=== PATIENT | male | born 1985 | race Caucasian/White ===

== ENCOUNTER → 2017-06-11 | Outpatient (CLI) | payer OTHER ==
[2017-06-11 12:37] LABS: BASO % 0.5 %; BASO ABS # 0.03 K/uL (0-0.2); EOS % 2.9 %; EOS ABS # 0.19 K/uL (0-0.5); HEMATOCRIT 47.4 % (42-52); HEMOGLOBIN 16.9 g/dL (14.0-18.0); IG# 0.02 K/uL (0.00-0.02); LYMPH ABS # 1.44 K/uL (1.2-3.4); MEAN CELL VOLUME 97.9 fL (80-100); MEAN CORPUSCULAR HEMOGLOBIN 34.9 pg (25-34); MEAN CORPUSCULAR HGB CONC 35.7 g/dl (32-36); MONO % 10.2 %; MONO ABS # 0.67 K/uL (0.11-0.59); NEUT % 64.1 %; NEUT ABS # 4.19 K/uL (1.4-6.5); PLATELET COUNT 113 K/uL (130-400); RED CELL DISTRIBUTION WIDTH CV 12.3 % (11.5-14.5); RED CELL DISTRIBUTION WIDTH SD 43.8 fL (36.4-46.3); WHITE BLOOD COUNT 6.54 K/uL (4.8-10.8)
[2017-06-11 13:11] LABS: ALKALINE PHOSPHATASE 112 U/L (45-117); ALT/SGPT 45 U/L (12-78); AST/SGOT 30 U/L (15-37); BLOOD UREA NITROGEN 15 mg/dl (7-18); CALCIUM 9.8 mg/dl (8.5-10.1); CARBON DIOXIDE 30 mmol/L (21-32); CREATININE 0.89 mg/dl (0.60-1.40); GLUCOSE 91 mg/dl (70-99); SODIUM 136 mmol/L (136-145); TOTAL PROTEIN 7.5 gm/dl (6.4-8.2)
== END | disposition home or self-care (01) ==
LOC: C.LABBFT 08:53
PROVIDERS: ATTEND Nurse Practitioner
DX: I10 Essential (primary) hypertension (principal)

== ENCOUNTER 2017-09-22 08:08 | Emergency (ER) | payer OTHER ==
[2017-09-22 08:16] VITALS: TEMP 36.7; Ht 180.3 cm
--- NOTE | 2017-09-22 08:42 | DIAGNOSTIC IMAGING REPORT ---
R HAND MIN 3 VIEWS ROUTINE CLINICAL HISTORY: 31 years-old Male presenting with R hand pain. TECHNIQUE: Frontal, oblique, and lateral views of the right hand were obtained. COMPARISON: None. FINDINGS: Comminuted intra-articular fracture of the neck and head of the fifth metacarpal. There is mild apex dorsal angulation. Overlying soft tissue swelling. No subluxation of the fifth metacarpophalangeal joint. Old ulnar styloid fracture also noted. No additional acute osseous injury. IMPRESSION: Comminuted fracture of the fifth metacarpal neck, which is suspected to also involve the metacarpal head and be intra-articular. Electronically signed by: See Connolly M.D. 09/22/2017 8:41 AM Dictated Date/Time: 09/22/2017 8:39 AM
--- NOTE | 2017-09-22 08:44 | DIAGNOSTIC IMAGING REPORT ---
R TOE(S) MIN 2 VIEWS CLINICAL HISTORY: 31 years-old Male presenting with R great toe pain. TECHNIQUE: Frontal, oblique, and lateral views of the right first toe were obtained. COMPARISON: None. FINDINGS: Obliquely oriented intra-articular fracture of the proximal phalanx of the first right toe. This extends into both the first metatarsophalangeal joint and the interphalangeal joint. There is no apparent cortical step off at the intra-articular fracture planes. No malalignment or additional fracture is evident. No advanced degenerative change. Mild overlying soft tissue swelling. IMPRESSION: Comminuted nondisplaced fracture of the proximal length of the right first toe, which is intra-articular at both the first metatarsophalangeal joint and the interphalangeal joint. Electronically signed by: See Connolly M.D. 09/22/2017 8:43 AM Dictated Date/Time: 09/22/2017 8:41 AM
[2017-09-22] MEDS ORDERED: LISI40TA PO (08:53)
[2017-09-22] MEDS ORDERED: TRAM-10 PO (09:24)
[2017-09-22] MEDS ORDERED: TRAMADOL HCL 50 MG TAB PO STA (09:34)
[2017-09-22 09:50] VITALS: BP 134/76; PULSE 87; O2SAT 98
--- NOTE | 2017-09-22 10:33 | EMERGENCY ROOM VISIT NOTE ---
History First contact with patient: 08:20 Chief Complaint: HAND PAIN/INJURY Stated Complaint: HAND AND TOE INJURY History of Present Illness The patient is a 31 year old male who presents to the Emergency Room with complaints of right hand and right great toe pain. The patient reports that he was intoxicated this morning, and accidentally kicked a table leg with his right foot. Because the pain, the patient became angry and then turned around, punching a wall. His hand went through the wall and hit a stud. The patient is concerned that he broke both his right great toe and hand. The patient has had a prior history of right hand fracture. She denies any pain extending into the right wrist, forearm or elbow. He denies any right ankle pain. He denies any paresthesias or numbness of the affected extremities, and currently rates his discomfort an 8 out of 10. Review of Systems 10 system review was performed and was negative except for pertinent positives and negatives as indicated in history of present illness Past Medical/Surgical History Medical Problems: (1) Essential (Primary) Hypertension (2) Fx clavicle shaft-closed Surgical Problems: (1) History of shoulder surgery Family History FH: hypertension Social History Smoking Status: Current Every Day Smoker Alcohol Use: occasionally Marital Status: single Housing Status: lives alone Occupation Status: employed Current/Historical Medications Scheduled Lisinopril (Prinivil), 40 MG PO QAM Scheduled PRN Tramadol (Ultram), 1-2 TAB PO Q4H PRN for Pain Physical Exam Vital Signs Date Time Temp Pulse Resp B/P (MAP) Pulse Ox O2 Delivery O2 Flow Rate FiO2 09/22/17 09:50 87 16 134/76 98 09/22/17 08:16 36.7 78 20 138/82 100 Room Air Physical Exam CONSTITUTIONAL: Healthy and well nourished. Alert and oriented X 3 with positive affect. HEENT: Normocephalic, atraumatic. Pupils equal, round and reactive. NECK: Full active range of motion without discomfort. MUSCULOSKELETAL: Examination of the right hand shows diffuse ecchymosis and edema of the ulnar aspect of the hand. Patient has tenderness to palpation through the distal fifth metacarpal and MCP region. Negative anatomic snuffbox tenderness or other discomfort to palpation about the wrist. Capillary refill of the right ring and fifth finger are normal. Examination of the right foot shows significant erythema, edema and ecchymosis of the great toe with tenderness to palpation over the proximal phalanx. No focal tenderness through the midfoot or ankle region. Pedal pulses are intact. INTEGUMENTARY: No rash or other significant dermatologic conditions noted. NEUROLOGIC: Right hand and right foot and toes are sensory intact. Medical Decision & Procedures ER Provider Diagnostic Interpretation: My interpretation of right hand x-rays shows a comminuted intra-articular fracture of the neck and head of the fifth metacarpal. No MCP subluxation or dislocation noted. Radiologist report is as follows: R HAND MIN 3 VIEWS ROUTINE CLINICAL HISTORY: 31 years-old Male presenting with R hand pain. TECHNIQUE: Frontal, oblique, and lateral views of the right hand were obtained. COMPARISON: None. FINDINGS: Comminuted intra-articular fracture of the neck and head of the fifth metacarpal. There is mild apex dorsal angulation. Overlying soft tissue swelling. No subluxation of the fifth metacarpophalangeal joint. Old ulnar styloid fracture also noted. No additional acute osseous injury. IMPRESSION: Comminuted fracture of the fifth metacarpal neck, which is suspected to also involve the metacarpal head and be intra-articular. My interpretation of right great toe x-rays shows an oblique fracture of the proximal phalanx that is intra-articular to both the MTP and IP joints. Radiologist report is as follows: R TOE(S) MIN 2 VIEWS CLINICAL HISTORY: 31 years-old Male presenting with R great toe pain. TECHNIQUE: Frontal, oblique, and lateral views of the right first toe were obtained. COMPARISON: None. FINDINGS: Obliquely oriented intra-articular fracture of the proximal phalanx of the first right toe. This extends into both the first metatarsophalangeal joint and the interphalangeal joint. There is no apparent cortical step off at the intra-articular fracture planes. No malalignment or additional fracture is evident. No advanced degenerative change. Mild overlying soft tissue swelling. IMPRESSION: Comminuted nondisplaced fracture of the proximal length of the right first toe, which is intra-articular at both the first metatarsophalangeal joint and the interphalangeal joint. Medications Administered Medications (Trade) Dose Ordered Sig/Kane Route Start Time Stop Time Status Last Admin Dose Admin Tramadol HCl (Ultram Tab) 50 mg ONE STAT PO 09/22/17 09:34 09/22/17 09:35 DC 09/22/17 09:50 50 MG ED Course Patient history and physical exam were performed. Nurse's notes were reviewed. Vital signs were reviewed and were normal. X-rays of the right great toe and right hand shows comminuted intra-articular fractures of the right fifth metacarpal and proximal phalanx of the right great toe. An Ortho-Glass boxer splint was applied to the right hand, and the patient's right great toe and second toe were alie taped. The patient is currently wearing sandals. The patient was instructed to follow-up with orthopedics for further reevaluation and management. The patient's mother is requesting that he be seen at [facility]. Review of the patient's insurance coverage shows that he also will need a referral from his PCP. The patient did request a prescription for something for pain, and was provided a prescription for Ultram. He was encouraged to alternate ibuprofen and Tylenol for baseline pain relief. The patient was instructed to apply ice and elevate the hand and foot for swelling and pain. The patient was happy with plan of care, voiced understanding of all discharge instructions, and rated his discomfort a 5 out of 10 at the conclusion of my exam. Medical Decision [place] Drug Monitoring Program Search Results: patient reviewed within database, no issues identified Medication Reconcilliation Current Medication List: was personally reviewed by me Blood Pressure Screening Patient's blood pressure: Normal blood pressure Impression Primary Impression: Displaced fracture of neck of right fifth metacarpal bone Additional Impression: Fracture of right great toe Departure Information Prescriptions Tramadol (Ultram) 50 Mg Tab 1-2 TAB PO Q4H Y for Pain, #15 TAB For Initial Treatment Prov: Gregory Mejia PA 09/22/17 Referrals No Doctor, Assigned (PCP) Patient Instructions [facility] Problem Qualifiers Primary Impression: Displaced fracture of neck of right fifth metacarpal bone Encounter type: initial encounter Fracture type: closed Qualified Codes: S62.336A - Displaced fracture of neck of fifth metacarpal bone, right hand, initial encounter for closed fracture Additional Impression: Fracture of right great toe Encounter type: initial encounter Fracture type: closed Phalanx: proximal Fracture alignment: displaced Qualified Codes: S92.411A - Displaced fracture of proximal phalanx of right great toe, initial encounter for closed fracture
== END 2017-09-22 10:01 | disposition home or self-care (01) ==
LOC: C.EDB 08:09
DX: S62.336A Displaced fracture of neck of fifth metacarpal bone, right hand, initial encounter for closed fracture (principal); S92.411A Displaced fracture of proximal phalanx of right great toe, initial encounter for closed fracture; W22.8XXA Striking against or struck by other objects, initial encounter; I10 Essential (primary) hypertension; F17.200 Nicotine dependence, unspecified, uncomplicated

== ENCOUNTER → 2017-10-01 | Outpatient (CLI) | payer OTHER ==
[~2017-10-01] MED LIST: LISI40TA PO; TRAM-10 PO
== END | disposition home or self-care (01) ==
LOC: C.RDSM 07:31
PROVIDERS: ATTEND Orthopaedic Surgery Sports Medicine
DX: S62.309A Unspecified fracture of unspecified metacarpal bone, initial encounter for closed fracture (principal); S92.911A Unspecified fracture of right toe(s), initial encounter for closed fracture; X58.XXXA Exposure to other specified factors, initial encounter